=== PATIENT | female | born 1950 | race American Indian/Alaskan Native ===

== ENCOUNTER 2018-04-14 10:53 | Outpatient (CLI) | payer MEDICARE ==
--- NOTE | 2018-04-14 13:45 | Vascular Lab Report ---
FINAL REPORT EXAM: VL VENOUS DUPLEX UE LT HISTORY: history of tias with pain TECHNIQUE: Ultrasound examination of the left upper extremity venous system PRIORS: None. FINDINGS: Normal compressibility, vascular patency, and augmentation are present diffusely throughout the visua lized portion of the deep veins. No abnormal intraluminal echoes are visualized to suggest deep vein thrombus. Nonspecific smoothly marginated isoechoic focus is noted in the superficial soft tissues of the mid l ateral forearm reportedly corresponding with area of pain. This measures 8 x 22 mm. IMPRESSION: No sonographic evidence of DVT in the left arm Nonspecific isoechoic focus in forearm may be atypical muscle configuration or slight muscle edema. D ifferential includes hematoma, lymph node, or soft tissue nodule
== END 2018-04-14 10:54 | disposition home or self-care (01) ==
LOC: VAS 10:53
PROVIDERS: ATTEND Physician Assistant
DX: M79.622 Pain in left upper arm (principal); M79.81 Nontraumatic hematoma of soft tissue; R59.9 Enlarged lymph nodes, unspecified; I10 Essential (primary) hypertension; Z86.73 Personal history of transient ischemic attack (TIA), and cerebral infarction without residual deficits